=== PATIENT | male | born 1975 | race Caucasian/White ===

== ENCOUNTER 2022-05-25 10:06 | Emergency (ER) | payer OTHER ==
[~2022-05-25] VITALS: Ht 177.8 cm; Wt 99.3 kg
[2022-05-25 10:13] VITALS: BP 156/94
--- NOTE | 2022-05-25 10:27 | NUR ---
PT AMBULATED TO ER BED 9 WITH CRUTCHES
--- NOTE | 2022-05-25 10:40 | NUR ---
Pt. ambulated to bed 9 with crutches. C/O swelling on right leg at this time, with pain scale of 9/10. Stated he was in [facility] yesterday 05/24/22 and fluids were removed from his knee. Per pt he was not able to sleep last night and the pain stayed the same. R leg has 1+ pitting edema, warm, drt, no oozing, kept knee immobilizer on his right knee. pt comfortable at this time.
[2022-05-25] MEDS ORDERED: KETOROLAC 30 MG/ML VIAL IM ONE (12:35)
[2022-05-25] MEDS ORDERED: HYDROcodone/APAP 10/325 MG 1 TAB TAB PO ONE (12:35)
[2022-05-25 12:50] LABS: BASOPHILS # (AUTO) 0.1 K/uL (0.00-0.22); BASOPHILS % (AUTO) 0.4 % (0.0-2.0); EOSINOPHILS # (AUTO) 0.1 K/uL (0-0.4); HEMOGLOBIN 13.5 g/dL (12.0-18.0); LYMPHOCYTES # (AUTO) 2.4 K/uL (2.0-11.5); LYMPHOCYTES % (AUTO) 19.2 % (20.5-51.1); MEAN CORPUSCULAR HEMOGLOBIN 31 pg (27-31); MEAN CORPUSCULAR HGB CONC 34 g/dL (33-37); MEAN CORPUSCULAR VOLUME 91.6 fL (80-94); MONOCYTES # (AUTO) 1.4 K/uL (0.8-1.0); MONOCYTES % (AUTO) 11.1 % (1.7-9.3); NEUTROPHILS # (AUTO) 8.4 K/uL (1.8-7.7); NEUTROPHILS % (AUTO) 68.3 % (42.2-75.2); PLATELET COUNT (AUTO) 307 K/uL (140-450); RED BLOOD CELL COUNT(AUTO) 4.37 MIL/uL (4.20-6.10); RED CELL DISTRIBUTION WIDTH 12.9 % (11.6-13.7); WHITE BLOOD COUNT (AUTO) 12.4 K/uL (4.8-10.8)
[2022-05-25 12:59] LABS: ANION GAP 11.7 (8-16); CARBON DIOXIDE 26.1 mmol/L (21-32); CREATININE 0.7 mg/dL (0.6-1.3); POTASSIUM 3.8 mmol/L (3.5-5.1)
--- NOTE | 2022-05-25 13:30 | NUR ---
pt. resting comfortably, no acute distress at this time. Will continue to monitor.
[2022-05-25] MEDS ORDERED: LIDOCAINE 2% 1000 MG/50 ML VIAL INJ ONE (13:45)
--- NOTE | 2022-05-25 14:47 | NUR ---
DR WHITEHEAD AT BEDSIDE FOR PROCEDURE
--- NOTE | 2022-05-25 14:59 | NUR ---
Knee fluid aspirated from pt walked to lab for processing
[2022-05-25 16:12] LABS: SPECIMENTYPE,BODY FLUID SYNOVIAL
[2022-05-25 16:13] LABS: APPEARANCE,SPUN,BODY FLUID HAZY (CLEAR); APPEARANCE,UNSPUN,BODY FLUID CLOUDY (CLEAR); COLOR,BODY FLUID YELLOW (LT YELLOW); TOTAL VOLUME,BODY FLUID 35 mL
[2022-05-25 16:21] LABS: POLYNUCLEAR, BODY FLUID 97 %; RBC, BODY FLUID 180 /cu. mm.; WBC, BODY FLUID 1530 /cu. mm.
[2022-05-25] MEDS ORDERED: IBUP-2213 PO (17:53)
[2022-05-25 17:57] VITALS: BP 141/79
--- NOTE | 2022-05-25 17:57 | NUR ---
Patient discharged with v/s stable. Written and verbal after care instructions given and explained with teachback. Patient alert, oriented and verbalized understanding of instructions. Ambulatory with steady gait. All questions addressed prior to discharge. ID band removed. Patient advised to follow up with PMD. Rx of Ibuprofen given. Patient educated on indication of medication including possible reaction and side effects. Opportunity to ask questions provided and answered.
[2022-05-29 00:02] LABS: GLUCOSE,BODY FLUID 38 mg/dL
== END 2022-05-25 17:57 | disposition home or self-care (01) ==
LOC: MED 10:06
DX: M25.461 Effusion, right knee (principal); Z72.89 Other problems related to lifestyle
CPT/HCPCS: 20610; 36415; 73562; 80048; 82945; 84157; 85025; 85651; 86140; 87070; 87205; 89051; 96372; 99285; J1885; J2001; 87075